=== PATIENT | male | born 1955 | race Caucasian/White ===

== ENCOUNTER 2017-04-14 17:59 | Emergency (ER) | payer OTHER ==
[~2017-04-14] VITALS: Ht 177.8 cm; Wt 74.8 kg
[~2017-04-14 17:59] MED LIST: ASPIR-LOW81 MG PO; DILANTIN100 MG PO; KEFLEX500 MG PO
== END 2017-04-14 19:28 | disposition home or self-care (01) ==
LOC: ED 17:59
DX: S61.207A Unspecified open wound of left little finger without damage to nail, initial encounter (principal); W25.XXXA Contact with sharp glass, initial encounter; Y93.89 Activity, other specified; Y92.69 Other specified industrial and construction area as the place of occurrence of the external cause; Y99.9 Unspecified external cause status

== ENCOUNTER 2017-05-14 10:57 | Emergency (ER) | payer BC ==
[~2017-05-14] VITALS: Ht 177.8 cm; Wt 74.8 kg
--- NOTE | ~2017-05-14 | EKG ---
[place], [place] ELECTROCARDIOGRAM REPORT NAME: FRANK DUNCAN UNIT #: [id number] ROOM: DOCTOR: IAN SHANKAR,AICHA BIRTHDATE: [birth year] DOS: 05/14/2017 TIME: 12:00, afternoon. IMPRESSION: 1. Sinus rhythm. 2. Right bundle-branch block. AICHA SOSA MD CM:EKGRPT:ELECTROCARDIOGRAM REPORT [id number] AICHA SOSA MD
[2017-05-14 12:08] LABS: BASO % 0.3 % (0.0-1.0); EOS # 0.1 10*3/uL (0.0-0.4); EOS % 1.7 % (1.0-4.0); HEMATOCRIT 41.1 % (42.0-52.0); HEMOGLOBIN 13.9 g/dl (14.0-18.0); LYMPH # 0.9 10*3/uL (1.3-4.4); LYMPH % 15.9 % (27.0-41.0); MEAN CELL VOLUME 88.8 fl (80.0-94.0); MEAN CORPUSCULAR HGB CONC 33.8 g/dl (33.0-37.0); MEAN PLATELET VOLUME 9.2 fl (9.6-12.3); MONO # 0.4 10*3/uL (0.1-1.0); MONO % 7.6 % (3.0-9.0); NEUT # 4.3 10*3/uL (2.3-7.9); NEUT % 74.3 % (47.0-73.0); PLATELET COUNT AUTOMATED 192 10*3/uL (130-400); RED BLOOD COUNT 4.63 10*6/uL (4.50-5.90); RED CELL DISTRI WIDTH 12.4 % (0-14.5); WHITE BLOOD COUNT 5.8 10*3/uL (4.8-10.8)
[2017-05-14 12:25] LABS: ALBUMIN 3.7 gm/dl (3.1-4.5); ALKALINE PHOSPHATASE 72 U/L (45-117); BUN 15 mg/dl (7-24); CHLORIDE 106 mmol/L (98-107); CREATININE 1.17 mg/dL (0.70-1.30); POTASSIUM 4.3 mmol/L (3.5-5.1); SGOT/AST 27 IU/L (3-35); SGPT/ALT 40 U/L (12-78); SODIUM 139 mmol/L (136-145); TOTAL PROTEIN 6.9 gm/dL (6.4-8.2)
[2017-05-14 12:30] LABS: TROPONIN I < 0.015 ng/ml (<0.045)
[2017-05-14 13:20] LABS: BILIRUBIN NEGATIVE (NEGATIVE); BLOOD NEGATIVE (NEGATIVE); CLARITY CLEAR (CLEAR); COLOR YELLOW (YELLOW); GLUCOSE NEGATIVE (NEGATIVE); KETONE NEGATIVE (NEGATIVE); LEUKO ESTERASE NEGATIVE (NEGATIVE); NITRITE NEGATIVE (NEGATIVE); PH 6.5 (5.0-9.0); SPECIFIC GRAVITY 1.015 (1.005-1.030); UROBILINOGEN 0.2 E.U./dl (0.2-1.0)
[2017-05-14 13:30] LABS: BACTERIA 3+; WBC 0-2 wbc/hpf (0-5)
== END 2017-05-14 13:38 | disposition home or self-care (01) ==
LOC: ED 10:57
PROVIDERS: Family Medicine Adult Medicine
DX: R51 Headache (principal); R42 Dizziness and giddiness; H53.8 Other visual disturbances; M79.601 Pain in right arm; I10 Essential (primary) hypertension

== ENCOUNTER 2017-05-26 13:43 | Inpatient (IN) | payer BC ==
[~2017-05-26] VITALS: Ht 177.8 cm; Wt 77.2 kg
[2017-05-26 13:55] VITALS: BP 141/95
[2017-05-26 14:08] LABS: BASO % 0.4 % (0.0-1.0); EOS # 0.2 10*3/uL (0.0-0.4); EOS % 3.8 % (1.0-4.0); HEMATOCRIT 38.4 % (42.0-52.0); HEMOGLOBIN 13.3 g/dl (14.0-18.0); LYMPH # 1.2 10*3/uL (1.3-4.4); LYMPH % 24.3 % (27.0-41.0); MEAN CELL VOLUME 87.5 fl (80.0-94.0); MEAN CORPUSCULAR HGB 30.3 pg (27.0-31.0); MEAN CORPUSCULAR HGB CONC 34.6 g/dl (33.0-37.0); MEAN PLATELET VOLUME 8.9 fl (9.6-12.3); MONO # 0.4 10*3/uL (0.1-1.0); MONO % 7.8 % (3.0-9.0); NEUT % 63.5 % (47.0-73.0); PLATELET COUNT AUTOMATED 167 10*3/uL (130-400); RED BLOOD COUNT 4.39 10*6/uL (4.50-5.90); RED CELL DISTRI WIDTH 12.3 % (0-14.5); WHITE BLOOD COUNT 4.7 10*3/uL (4.8-10.8)
[2017-05-26 14:17] LABS: ACT PARTIAL THROMBO TIME 26.7 SECONDS (20.8-31.5)
[2017-05-26 15:16] LABS: ALKALINE PHOSPHATASE 71 U/L (45-117); BUN 11 mg/dl (7-24); CHLORIDE 103 mmol/L (98-107); CPK 468 U/L (39-308); CREATININE 1.05 mg/dL (0.70-1.30); LIPASE 165 U/L (73-393); MAGNESIUM 1.9 mg/dL (1.5-2.1); POTASSIUM 3.9 mmol/L (3.5-5.1); SGOT/AST 35 IU/L (3-35); SGPT/ALT 46 U/L (12-78); SODIUM 138 mmol/L (136-145); TOTAL PROTEIN 6.8 gm/dL (6.4-8.2)
[2017-05-26 15:18] LABS: TROPONIN I < 0.015 ng/ml (<0.045)
[2017-05-26 15:24] LABS: CKMB 12.9 ng/ml (0.5-3.6)
[2017-05-26 18:52] VITALS: BP 163/70
[2017-05-26] MEDS ORDERED: KEPPRA500 MG PO (19:22)
[2017-05-26] MEDS ORDERED: COREG6.25 MG PO (19:23)
[2017-05-26 20:00] VITALS: BP 143/74
[2017-05-27] VITALS: BP 108/60
[2017-05-27 05:14] LABS: ACT PARTIAL THROMBO TIME 27.4 SECONDS (20.8-31.5)
[2017-05-27 05:37] LABS: ALBUMIN 3.6 gm/dl (3.1-4.5); ALKALINE PHOSPHATASE 67 U/L (45-117); BUN 12 mg/dl (7-24); CHLORIDE 104 mmol/L (98-107); CHOLESTEROL 196 mg/dL (<200); CREATININE 1.03 mg/dL (0.70-1.30); HDL CHOLESTEROL 44 mg/dl (40-60); LDL CHOLESTEROL 122 mg/dL (9-159); POTASSIUM 3.8 mmol/L (3.5-5.1); SGPT/ALT 38 U/L (12-78); SODIUM 141 mmol/L (136-145); TOTAL PROTEIN 6.3 gm/dL (6.4-8.2); TRIGLYCERIDES 149 mg/dl (<150); VLDL CHOLESTEROL 30 mg/dL (6-40)
[2017-05-27 05:43] LABS: FREE T4 0.96 ng/dl (0.76-1.46); SGOT/AST 29 IU/L (3-35)
[2017-05-27 05:48] LABS: BASO % 0.5 % (0.0-1.0); EOS # 0.2 10*3/uL (0.0-0.4); EOS % 5.6 % (1.0-4.0); HEMATOCRIT 39.4 % (42.0-52.0); HEMOGLOBIN 13.5 g/dl (14.0-18.0); LYMPH # 1.2 10*3/uL (1.3-4.4); LYMPH % 30.6 % (27.0-41.0); MEAN CELL VOLUME 89.3 fl (80.0-94.0); MEAN CORPUSCULAR HGB 30.6 pg (27.0-31.0); MEAN CORPUSCULAR HGB CONC 34.3 g/dl (33.0-37.0); MEAN PLATELET VOLUME 9.6 fl (9.6-12.3); MONO # 0.4 10*3/uL (0.1-1.0); MONO % 9.1 % (3.0-9.0); NEUT # 2.1 10*3/uL (2.3-7.9); NEUT % 53.9 % (47.0-73.0); PLATELET COUNT AUTOMATED 164 10*3/uL (130-400); RED BLOOD COUNT 4.41 10*6/uL (4.50-5.90); RED CELL DISTRI WIDTH 12.6 % (0-14.5)
[2017-05-27 07:05] LABS: VITAMIN D, 25-HYDROXY 43.8 ng/mL (30-100)
[2017-05-27 08:00] VITALS: BP 139/68
== END 2017-05-27 11:22 | disposition home or self-care (01) | DRG 282 ==
LOC: ED 13:43 → EDHOLD 15:56 → 4E 16:58
PROVIDERS: Emergency Medicine; Internal Medicine; ADMIT Internal Medicine
DX: I21.3 ST elevation (STEMI) myocardial infarction of unspecified site (principal); I10 Essential (primary) hypertension; D64.9 Anemia, unspecified; R74.8 Abnormal levels of other serum enzymes; R89.7 Abnormal histological findings in specimens from other organs, systems and tissues; G40.909 Epilepsy, unspecified, not intractable, without status epilepticus; J45.909 Unspecified asthma, uncomplicated; D72.829 Elevated white blood cell count, unspecified; Z81.8 Family history of other mental and behavioral disorders; Z82.5 Family history of asthma and other chronic lower respiratory diseases; Z79.82 Long term (current) use of aspirin; Z79.899 Other long term (current) drug therapy

== ENCOUNTER → 2017-06-14 | Day surgery (SDC) | payer BC ==
[~2017-06-14] VITALS: Ht 177.8 cm; Wt 76.7 kg
[~2017-06-14] MED LIST changes: +COREG6.25 MG PO; +KEPPRA500 MG PO
--- NOTE | ~2017-06-14 | O ---
[place], [place] OPERATIVE NOTE NAME: FRANK DUNCAN UNIT #: [id number] ROOM: DOCTOR: MATEO FELICIANO MD BIRTHDATE: [birth year] DOS: 06/14/2017 GASTROENDOSCOPIC REPORT. INDICATIONS: A 61-year-old patient who has presented for colonic screening. ALLERGIES: No known medication. FAMILY HISTORY: Father with colonic carcinoma. PAST SURGICAL HISTORY: Unremarkable. PAST MEDICAL HISTORY: Epilepsy, hypertension, last seizure 10 years ago. SOCIAL HISTORY: Nonsmoker, nonalcohol consumer, stopped 15 years ago. PROCEDURE: Today's procedure part of investigation is colonoscopy. PREMEDICATION: Versed and Diprivan. SCOPE: Olympus forward-viewing colonoscope 10L video. REPORT: After putting the patient in the left lateral position and after application of lubricant to the scope, the scope was introduced. Thereafter, under direct visualization, I advanced through the length of colon without difficulty. Base of the cecum explored, appendiceal orifice identified, ileocecal valve photographed. There is retention of some stool. Detailed mucosal evaluation impractical due to retention of pasty stool; however, anatomically, no gross pathology was identified to the cecum level. The intensity of retention of the pasty stool is less in transverse and as well in the descending colon. Air was suctioned out. The patient was extubated, tolerated the procedure well. IMPRESSION: Normal colonoscopic examination with fare colonic prep. PLAN AND DISCUSSION: I did not see any gross pathology throughout the colonoscopy. We are going to continue with high fiber diet. I recommend this gentleman to have another colonoscopy in 3-5 years. Thank you very much indeed for your kind referral. [place], [place] OPERATIVE NOTE NAME: FRANK DUNCAN UNIT #: [id number] ROOM: DOCTOR: MATEO FELICIANO MD BIRTHDATE: [birth year] AMTEO FELICIANO MD CM:OPRECORD:OPERATIVE NOTE [id number] MATEO FELICIANO MD 06/14/17 0922 interface
[2017-06-14 07:14] VITALS: BP 131/74
[2017-06-14 07:56] VITALS: BP 112/58
[2017-06-14 08:01] VITALS: BP 130/70
[2017-06-14 08:11] VITALS: BP 124/73
== END | disposition home or self-care (01) ==
LOC: SDC 06-08 08:00
DX: Z12.11 Encounter for screening for malignant neoplasm of colon (principal); I10 Essential (primary) hypertension; J45.909 Unspecified asthma, uncomplicated; Z80.0 Family history of malignant neoplasm of digestive organs

== ENCOUNTER → 2017-06-19 | Outpatient (CLI) | payer BC ==
[~2017-06-19] MED LIST changes: +B12,B-12,B 12500 MC1 PO; +B6 PO; +CALCIUM 600 +1 EAC2 PO; +MULTIVITAMINS1 EAC5 PO
--- NOTE | ~2017-06-19 | ST ---
[place], [place] EXERCISE STRESS TEST REPORT NAME: FRANK DUNCAN [facility] #: [id number] UNIT #: [id number] ROOM: DOCTOR: DUNIA PARSONS MD BIRTHDATE: [birth year] DOS: 06/19/2017 EXERCISE NUCLEAR STRESS TEST REASON FOR STRESS TEST: Precordial chest pain. PROCEDURE: The patient exercised on a full Fransisco protocol for 11 minutes 45 seconds and stopped for fatigue. He achieved a maximum heart rate of 136, which represented 86% of his maximum predicted heart rate at a workload of 12.5 mets. The resting blood pressure 146/62 hilda to 188/58. His EKG showed a right bundle branch block. He did not have any diagnostic ST changes with exercise. He had rare PACs and rare PVCs with exercise. One minute prior to completion of the exercise protocol, he was given radionuclide intravenously. IMPRESSION: 1. Excellent exercise capacity without chest pain or diagnostic electrocardiographic changes. 2. Radionuclide was administered. Please see the separate imaging report for further details of the patient's stress test results. DUNIA PARSONS MD CM:STRESS:EXERCISE STRESS TEST REPORT [id number] DUNIA PARSONS MD
--- NOTE | 2017-06-19 10:10 | NUR ---
INFORMED CONSENT SIGNED FOR CARIOLYTE STRESS TEST WITH DR. PARSONS. RESTING SINUS BRADYCARDIA/RBBB, HR 51, BP 146/62. COMPLETED 11:45 SECONDS OF A BRANT PROTOCOL COMPLETING 2:24 OF STAGE IV, 4.2 MPH/16% GRADE. TEST TERMINATED D/T FATIGUE. PEAK HEART RATE OF 136 ACHIEVED WHICH IS 86% PREDICTED MAXIMUM AND A PEAK BP OF 188/58. HAS A HIGH EXERCISE TOLERANCE. NO ST CHANGES NOTED. PVC'S AND PAC'S PRESENT. LAST RECOVERY HR 83, BP 158/74. WAITING NUCLEAR SCANNING IN STABLE CONDITON.
== END | disposition home or self-care (01) ==
LOC: CARD 01:23
DX: I10 Essential (primary) hypertension (principal)

== ENCOUNTER 2019-07-19 19:25 | Emergency (ER) | payer BC, OTHER ==
[~2019-07-19] VITALS: Ht 177.8 cm; Wt 70.8 kg
[2019-07-19 19:52] LABS: BASO % 0.4 % (0.0-1.0); EOS # 0.2 10*3/uL (0.0-0.4); EOS % 2.5 % (1.0-4.0); HEMATOCRIT 39.2 % (42.0-52.0); HEMOGLOBIN 13.3 g/dl (14.0-18.0); LYMPH # 0.9 10*3/uL (1.3-4.4); LYMPH % 12.7 % (27.0-41.0); MEAN CELL VOLUME 91.4 fl (80.0-94.0); MEAN CORPUSCULAR HGB CONC 33.9 g/dl (33.0-37.0); MONO # 0.4 10*3/uL (0.1-1.0); MONO % 5.3 % (3.0-9.0); NEUT # 5.7 10*3/uL (2.3-7.9); NEUT % 78.7 % (47.0-73.0); PLATELET COUNT AUTOMATED 168 10*3/uL (130-400); RED BLOOD COUNT 4.29 10*6/uL (4.50-5.90); RED CELL DISTRI WIDTH 12.4 % (0-14.5); WHITE BLOOD COUNT 7.2 10*3/uL (4.8-10.8)
[2019-07-19 20:08] LABS: ALBUMIN 3.7 gm/dl (3.1-4.5); ALKALINE PHOSPHATASE 63 U/L (45-117); BUN 11 mg/dl (7-24); CHLORIDE 106 mmol/L (98-107); CREATININE 1.06 mg/dL (0.70-1.30); POTASSIUM 3.6 mmol/L (3.5-5.1); SGOT/AST 31 IU/L (3-35); SGPT/ALT 50 U/L (12-78); SODIUM 140 mmol/L (136-145); TOTAL PROTEIN 6.6 gm/dL (6.4-8.2)
[2019-07-19 20:09] LABS: ETHYL ALCOHOL < 3.0 mg/dl (<3); TROPONIN I < 0.015 ng/ml (<0.045)
== END 2019-07-19 22:28 | disposition home or self-care (01) ==
LOC: ED 19:25
PROVIDERS: Nurse Practitioner Family
DX: R55 Syncope and collapse (principal); I10 Essential (primary) hypertension; J45.909 Unspecified asthma, uncomplicated; Z79.899 Other long term (current) drug therapy; Z86.2 Personal history of diseases of the blood and blood-forming organs and certain disorders involving the immune mechanism; V89.2XXA Person injured in unspecified motor-vehicle accident, traffic, initial encounter; Y93.89 Activity, other specified; Y92.89 Other specified places as the place of occurrence of the external cause; Y99.8 Other external cause status

== ENCOUNTER 2019-08-24 15:02 | Emergency (ER) | payer OTHER, BC ==
[~2019-08-24] VITALS: Ht 182.8 cm; Wt 74.8 kg
[2019-08-24] MEDS ORDERED: Motrin,Rufen800 MG PO (17:37)
== END 2019-08-24 17:50 | disposition home or self-care (01) ==
LOC: ED 15:02
DX: S30.0XXA Contusion of lower back and pelvis, initial encounter (principal); J45.909 Unspecified asthma, uncomplicated; Z79.899 Other long term (current) drug therapy; Z79.82 Long term (current) use of aspirin; W31.89XA Contact with other specified machinery, initial encounter; Y93.01 Activity, walking, marching and hiking; Y92.89 Other specified places as the place of occurrence of the external cause; Y99.8 Other external cause status

== ENCOUNTER → 2020-09-16 | Outpatient (CLI) | payer BC ==
[~2020-09-16] MED LIST changes: +Motrin,Rufen800 MG PO
== END | disposition home or self-care (01) ==
LOC: COVID19 12:53
PROVIDERS: ATTEND Student in an Organized Health Care Education/Training Program
DX: Z20.822 Contact with and (suspected) exposure to COVID-19 (principal)

== ENCOUNTER → 2020-09-24 | Outpatient (CLI) | payer BC | END | disposition home or self-care (01) | LOC: COVID19 12:42 | PROVIDERS: ATTEND Internal Medicine | DX: U07.1 COVID-19 (principal) ==

== ENCOUNTER → 2022-01-04 | Outpatient (CLI) | payer BC | END | disposition home or self-care (01) | LOC: RESCLI 01:55 | PROVIDERS: ATTEND Internal Medicine Nephrology | DX: J45.40 Moderate persistent asthma, uncomplicated (principal); G40.909 Epilepsy, unspecified, not intractable, without status epilepticus; J30.2 Other seasonal allergic rhinitis; E55.9 Vitamin D deficiency, unspecified; E78.2 Mixed hyperlipidemia; Z79.899 Other long term (current) drug therapy; Z79.82 Long term (current) use of aspirin ==

== ENCOUNTER 2022-05-18 17:59 | Observation (INO) | payer BC ==
[2022-05-18 18:07] VITALS: BP 127/66
[2022-05-18 18:49] LABS: BASO % 0.3 % (0.0-1.0); EOS # 0.2 10*3/uL (0.0-0.4); EOS % 3.2 % (1.0-4.0); HEMATOCRIT 38.2 % (42.0-52.0); LYMPH # 0.6 10*3/uL (1.3-4.4); LYMPH % 9.8 % (27.0-41.0); MEAN CELL VOLUME 91.2 fl (80.0-94.0); MEAN CORPUSCULAR HGB 30.5 pg (27.0-31.0); MEAN CORPUSCULAR HGB CONC 33.5 g/dl (33.0-37.0); MEAN PLATELET VOLUME 8.7 fl (9.6-12.3); MONO # 0.5 10*3/uL (0.1-1.0); MONO % 7.2 % (3.0-9.0); NEUT # 5.2 10*3/uL (2.3-7.9); NEUT % 79.3 % (47.0-73.0); PLATELET COUNT AUTOMATED 167 10*3/uL (130-400); RED BLOOD COUNT 4.19 10*6/uL (4.50-5.90); RED CELL DISTRI WIDTH 12.1 % (0-14.5); WHITE BLOOD COUNT 6.5 10*3/uL (4.8-10.8)
[2022-05-18 19:00] LABS: ACT PARTIAL THROMBO TIME 25.9 SECONDS (20.0-32.1); INTERNATIONAL NORM RATIO 1.1 (2.0-3.5)
[2022-05-18 19:06] LABS: ALKALINE PHOSPHATASE 75 U/L (45-117); BUN 14 mg/dl (7-24); CHLORIDE 111 mmol/L (98-107); CREATININE 1.34 mg/dL (0.70-1.30); LIPASE 148 U/L (73-393); POTASSIUM 4.1 mmol/L (3.5-5.1); SGOT/AST 33 IU/L (3-35); SGPT/ALT 48 U/L (12-78); SODIUM 140 mmol/L (136-145); TOTAL PROTEIN 6.1 gm/dL (6.4-8.2)
[2022-05-18 20:52] VITALS: BP 138/74
[2022-05-19 00:42] VITALS: BP 129/72
[2022-05-19 04:06] LABS: BILIRUBIN Negative (Negative); BLOOD Negative (Negative); CLARITY Clear (Clear); COLOR Yellow (Yellow); GLUCOSE Trace (Negative); KETONE Negative (Negative); LEUKO ESTERASE Negative (Negative); NITRITE Negative (Negative); PH 6.5 (4.5-8.0)
[2022-05-19 04:17] LABS: BASO % 0.5 % (0.0-1.0); EOS # 0.2 10*3/uL (0.0-0.4); EOS % 2.3 % (1.0-4.0); HEMATOCRIT 38.3 % (42.0-52.0); LYMPH # 0.9 10*3/uL (1.3-4.4); MEAN CELL VOLUME 92.3 fl (80.0-94.0); MEAN CORPUSCULAR HGB 30.8 pg (27.0-31.0); MEAN CORPUSCULAR HGB CONC 33.4 g/dl (33.0-37.0); MEAN PLATELET VOLUME 9.1 fl (9.6-12.3); MONO # 0.6 10*3/uL (0.1-1.0); MONO % 9.3 % (3.0-9.0); NEUT # 4.7 10*3/uL (2.3-7.9); NEUT % 73.6 % (47.0-73.0); PLATELET COUNT AUTOMATED 160 10*3/uL (130-400); RED BLOOD COUNT 4.15 10*6/uL (4.50-5.90); RED CELL DISTRI WIDTH 12.4 % (0-14.5); WHITE BLOOD COUNT 6.4 10*3/uL (4.8-10.8)
[2022-05-19 04:24] LABS: RBC 0-2 rbc/hpf (0-2)
[2022-05-19 04:32] LABS: BUN 10 mg/dl (7-24); CHLORIDE 113 mmol/L (98-107); CREATININE 1.08 mg/dL (0.70-1.30); SODIUM 144 mmol/L (136-145)
[2022-05-19 04:37] LABS: CHOLESTEROL 94 mg/dL (<200); FREE T4 0.93 ng/dl (0.76-1.46); LDL CHOLESTEROL 32 mg/dL (9-159); TRIGLYCERIDES 36 mg/dl (<150)
[2022-05-19 06:50] VITALS: BP 138/79
[2022-05-19 08:15] LABS: VITAMIN D, 25-HYDROXY 73.9 ng/mL (30-100)
[2022-05-19 11:58] VITALS: BP 136/75
[2022-05-19 14:41] VITALS: BP 123/57
[2022-05-19 15:25] VITALS: BP 148/65
== END 2022-05-19 15:17 | disposition home or self-care (01) ==
LOC: ED 17:59 → EDHOLD 05-19 00:50
PROVIDERS: Emergency Medicine; Student in an Organized Health Care Education/Training Program; ADMIT Internal Medicine; ATTEND Internal Medicine
DX: D64.9 Anemia, unspecified (principal); S30.0XXA Contusion of lower back and pelvis, initial encounter; R55 Syncope and collapse; I95.1 Orthostatic hypotension; E86.0 Dehydration; E87.2 Acidosis; E87.8 Other disorders of electrolyte and fluid balance, not elsewhere classified; N17.0 Acute kidney failure with tubular necrosis; G40.909 Epilepsy, unspecified, not intractable, without status epilepticus; J45.20 Mild intermittent asthma, uncomplicated; I10 Essential (primary) hypertension; E83.41 Hypermagnesemia; Z79.899 Other long term (current) drug therapy

== ENCOUNTER → 2022-05-26 | Outpatient (CLI) | payer BC | END | disposition home or self-care (01) | LOC: RESCLI 02:06 | PROVIDERS: ATTEND Internal Medicine | DX: R55 Syncope and collapse (principal); J45.40 Moderate persistent asthma, uncomplicated; E55.9 Vitamin D deficiency, unspecified; G40.909 Epilepsy, unspecified, not intractable, without status epilepticus; E78.5 Hyperlipidemia, unspecified; Z88.8 Allergy status to other drugs, medicaments and biological substances; Z79.899 Other long term (current) drug therapy ==

== ENCOUNTER 2023-02-05 15:39 | Emergency (ER) | payer OTHER, BC, MEDICARE ==
[~2023-02-05] VITALS: Ht 177.8 cm; Wt 77.1 kg
[2023-02-05] MEDS ORDERED: MONTELUKAST SOD10 MG PO (16:31)
[2023-02-05] MEDS ORDERED: TRELEGY ELLIPT1 EAC1 INH (16:32)
[2023-02-05] MEDS ORDERED: ATORVASTATIN CA40 M1 PO (16:32)
[2023-02-05] MEDS ORDERED: SEPTDS PO (17:55)
== END 2023-02-05 18:17 | disposition home or self-care (01) ==
LOC: ED 15:39
DX: S61.210A Laceration without foreign body of right index finger without damage to nail, initial encounter (principal); Z79.899 Other long term (current) drug therapy; W23.0XXA Caught, crushed, jammed, or pinched between moving objects, initial encounter; Y93.89 Activity, other specified; Y92.69 Other specified industrial and construction area as the place of occurrence of the external cause; Y99.9 Unspecified external cause status

== ENCOUNTER 2024-11-01 08:31 | Emergency (ER) | payer MEDICARE, OTHER ==
[~2024-11-01] VITALS: Ht 177.8 cm; Wt 88.5 kg
[~2024-11-01 08:31] MED LIST changes: +ATORVASTATIN CA40 M1 PO; +MONTELUKAST SOD10 MG PO; +SEPTDS PO; +TRELEGY ELLIPT1 EAC1 INH
[2024-11-01] MEDS ORDERED: MELOXICAM7.5 MG PO (08:49)
[2024-11-01] MEDS ORDERED: LEVOFLOXACIN750 M2 PO (09:17)
[2024-11-01] MEDS ORDERED: BROMFED DM COU118 M2 PO (09:17)
== END 2024-11-01 09:32 | disposition home or self-care (01) ==
LOC: ED 08:31
DX: J45.909 Unspecified asthma, uncomplicated (principal); Z20.822 Contact with and (suspected) exposure to COVID-19; I10 Essential (primary) hypertension; G40.909 Epilepsy, unspecified, not intractable, without status epilepticus; Z79.899 Other long term (current) drug therapy; Z79.82 Long term (current) use of aspirin

== ENCOUNTER 2024-11-10 04:13 | Inpatient (IN) | payer MEDICARE, OTHER ==
[~2024-11-10] VITALS: Ht 177.8 cm; Wt 83.9 kg
[~2024-11-10 04:13] MED LIST changes: +BROMFED DM COU118 M2 PO; +LEVOFLOXACIN750 M2 PO; +MELOXICAM7.5 MG PO
[2024-11-10 04:22] VITALS: BP 134/70
[2024-11-10 05:14] LABS: BUN 9 mg/dl (9-23); CHLORIDE 99 mmol/L (98-107); POTASSIUM 4.4 mmol/L (3.4-5.1)
[2024-11-10] MEDS ORDERED: Albuterol Sulf/Ipratropium 3 ML VIAL NEB ONE (05:50)
[2024-11-10 06:07] LABS: BASO % 0.3 % (0.0-1.0); EOS % 0.2 % (1.0-4.0); HEMATOCRIT 40.1 % (42.0-52.0); MEAN CELL VOLUME 90.5 fl (80.0-94.0); MEAN CORPUSCULAR HGB 30.7 pg (27.0-31.0); MEAN CORPUSCULAR HGB CONC 33.9 g/dl (33.0-37.0); MEAN PLATELET VOLUME 9.2 fl (9.6-12.3); NEUT # 8.5 10*3/uL (2.3-7.9); NEUT % 81.5 % (47.0-73.0); PLATELET COUNT AUTOMATED 237 10*3/uL (130-400); RED BLOOD COUNT 4.43 10*6/uL (4.50-5.90); RED CELL DISTRI WIDTH 12.6 % (0-14.5); WHITE BLOOD COUNT 10.4 10*3/uL (4.8-10.8)
[2024-11-10] MEDS ORDERED: AZITHROMYCIN 250 ML IV ONE (06:10)
[2024-11-10] MEDS ORDERED: cefTRIAXone Sodium 1 GM/10 ML SYR IV ONE (06:10)
[2024-11-10] MEDS ORDERED: Ondansetron Hydrochloride 4 MG/2 ML VIAL IV PRN (06:25)
[2024-11-10] MEDS ORDERED: TEMAZEPAM 15 MG CAP PO PRN (06:25)
[2024-11-10] MEDS ORDERED: Magnesium Hydroxide 30 ML UDC PO PRN (06:25)
[2024-11-10] MEDS ORDERED: Acetaminophen/Hydrocodone 5 MG/325 MG TABLET PO PRN (06:25)
[2024-11-10] MEDS ORDERED: ACETAMINOPHEN 650 MG SUPP R PRN (06:25)
[2024-11-10] MEDS ORDERED: ACETAMINOPHEN 325 MG TAB PO PRN (06:25)
[2024-11-10] MEDS ORDERED: BISACODYL 10 MG SUPP R PRN (06:25)
[2024-11-10] MEDS ORDERED: BISACODYL 5 MG TAB PO PRN (06:25)
[2024-11-10] MEDS ORDERED: ASPIRIN ADULT L81 M1 PO (06:31)
[2024-11-10] MEDS ORDERED: [UNRECOGNIZED DRUG - OTHER] PO (06:31)
[2024-11-10] MEDS ORDERED: BUSPIRONE10 MG PO (06:32)
[2024-11-10] MEDS ORDERED: BENICAR20 MG PO (06:34)
[2024-11-10 08:44] VITALS: BP 132/68
[2024-11-10] MEDS ORDERED: busPIRone Hydrochloride 10 MG TAB PO SCH (10:00)
[2024-11-10] MEDS ORDERED: LEVETIRACETAM 250 MG TAB PO SCH (10:00)
[2024-11-10] MEDS ORDERED: Enoxaparin Sodium 40 MG/0.4 ML SYR SC SCH (10:00)
[2024-11-10] MEDS ORDERED: ASPIRIN, CHEWABLE 81 MG TAB PO SCH (10:00)
[2024-11-10] MEDS ORDERED: Albuterol Sulf/Ipratropium 3 ML VIAL NEB SCH (10:50)
[2024-11-10 13:04] VITALS: BP 141/74
[2024-11-10 16:48] VITALS: BP 132/78
[2024-11-10 17:05] VITALS: BP 161/80
[2024-11-10] MEDS ORDERED: ATORVASTATIN CALCIUM 40 MG TABLET PO SCH (18:00)
[2024-11-10] MEDS ORDERED: VITAMIN D325 MCG PO (18:35)
[2024-11-10 20:00] VITALS: BP 155/74
[2024-11-10] MEDS ORDERED: Montelukast Sodium 10 MG TAB PO SCH (21:00)
[2024-11-11] VITALS: BP 160/70
[2024-11-11] MEDS ORDERED: AZITHROMYCIN 250 ML IV SCH (05:00)
[2024-11-11] MEDS ORDERED: cefTRIAXone Sodium 10 ML IV SCH (06:00)
[2024-11-11 07:01] LABS: BASO % 0.1 % (0.0-1.0); EOS % 0.2 % (1.0-4.0); HEMATOCRIT 38.6 % (42.0-52.0); MEAN CELL VOLUME 91.9 fl (80.0-94.0); MEAN CORPUSCULAR HGB 30.2 pg (27.0-31.0); MEAN CORPUSCULAR HGB CONC 32.9 g/dl (33.0-37.0); MEAN PLATELET VOLUME 8.9 fl (9.6-12.3); MONO # 0.7 10*3/uL (0.1-1.0); MONO % 8.6 % (3.0-9.0); NEUT # 7.3 10*3/uL (2.3-7.9); NEUT % 84.5 % (47.0-73.0); PLATELET COUNT AUTOMATED 226 10*3/uL (130-400); RED CELL DISTRI WIDTH 12.6 % (0-14.5); WHITE BLOOD COUNT 8.6 10*3/uL (4.8-10.8)
[2024-11-11 07:04] LABS: ALKALINE PHOSPHATASE 82 U/L (46-116); BUN 8 mg/dl (9-23); CHLORIDE 98 mmol/L (98-107); CHOLESTEROL 92 mg/dL (<200); FREE T4 1.16 ng/dl (0.89-1.76); LDL CHOLESTEROL 49 mg/dL (9-159); SGPT/ALT 38 U/L (5-49); TOTAL PROTEIN 6.3 gm/dL (6.0-8.0); TRIGLYCERIDES 64 mg/dl (<150)
[2024-11-11 08:00] VITALS: BP 118/60
[2024-11-11] MEDS ORDERED: ZITHROMAX250 MG PO (11:47)
[2024-11-11] MEDS ORDERED: PREDNISONE50 MG PO (11:47)
[2024-11-11] MEDS ORDERED: MUCINEX1200 M1 PO (11:47)
[2024-11-11 12:00] VITALS: BP 134/62
== END 2024-11-11 13:40 | disposition home or self-care (01) | DRG 178 ==
LOC: ED 04:13 → 5E 06:18 → EDHOLD 06:18 → 5E 06:27
PROVIDERS: Internal Medicine; Student in an Organized Health Care Education/Training Program; ADMIT Internal Medicine; ATTEND Internal Medicine
DX: J15.69 Pneumonia due to other Gram-negative bacteria (principal); E87.1 Hypo-osmolality and hyponatremia; G40.919 Epilepsy, unspecified, intractable, without status epilepticus; J44.0 Chronic obstructive pulmonary disease with (acute) lower respiratory infection; D64.9 Anemia, unspecified; R73.9 Hyperglycemia, unspecified; I10 Essential (primary) hypertension; J45.909 Unspecified asthma, uncomplicated; Z20.822 Contact with and (suspected) exposure to COVID-19; Z81.8 Family history of other mental and behavioral disorders; Z79.82 Long term (current) use of aspirin; Z79.899 Other long term (current) drug therapy

== ENCOUNTER 2024-11-24 11:13 | Inpatient (IN) | payer MEDICARE, OTHER ==
[~2024-11-24] VITALS: Ht 177.8 cm; Wt 82.6 kg
[~2024-11-24 11:13] MED LIST changes: +ASPIRIN ADULT L81 M1 PO; +BENICAR20 MG PO; +BUSPIRONE10 MG PO; +MUCINEX1200 M1 PO; +PREDNISONE50 MG PO; +VITAMIN D325 MCG PO; +ZITHROMAX250 MG PO; +[UNRECOGNIZED DRUG - OTHER] PO
[2024-11-24 11:25] VITALS: BP 132/66
[2024-11-24] MEDS ORDERED: ZESTRIL10 MG PO (11:34)
[2024-11-24] MEDS ORDERED: VENTOLIN 02.5 MG/3 M INH (11:34)
[2024-11-24 11:57] LABS: BASO % 0.2 % (0.0-1.0); EOS % 0.1 % (1.0-4.0); HEMATOCRIT 39.7 % (42.0-52.0); MEAN CELL VOLUME 92.1 fl (80.0-94.0); MEAN CORPUSCULAR HGB 30.2 pg (27.0-31.0); MEAN CORPUSCULAR HGB CONC 32.7 g/dl (33.0-37.0); MEAN PLATELET VOLUME 8.1 fl (9.6-12.3); MONO # 0.8 10*3/uL (0.1-1.0); MONO % 7.5 % (3.0-9.0); NEUT # 9.2 10*3/uL (2.3-7.9); NEUT % 83.3 % (47.0-73.0); PLATELET COUNT AUTOMATED 307 10*3/uL (130-400); RED BLOOD COUNT 4.31 10*6/uL (4.50-5.90); RED CELL DISTRI WIDTH 12.3 % (0-14.5)
[2024-11-24 12:19] LABS: ALKALINE PHOSPHATASE 90 U/L (46-116); BUN 8 mg/dl (9-23); CHLORIDE 101 mmol/L (98-107); POTASSIUM 4.1 mmol/L (3.4-5.1); SGPT/ALT 43 U/L (5-49); TOTAL PROTEIN 6.6 gm/dL (6.0-8.0)
[2024-11-24] MEDS ORDERED: LEVOFLOXACIN 100 ML IV ONE (12:55)
[2024-11-24] MEDS ORDERED: LEVOFLOXACIN 50 ML IV ONE (13:00)
[2024-11-24] MEDS ORDERED: Ondansetron Hydrochloride 4 MG/2 ML VIAL IV PRN (13:30)
[2024-11-24] MEDS ORDERED: BISACODYL 5 MG TAB PO PRN (13:30)
[2024-11-24] MEDS ORDERED: TEMAZEPAM 15 MG CAP PO PRN (13:30)
[2024-11-24] MEDS ORDERED: Acetaminophen/Hydrocodone 5 MG/325 MG TABLET PO PRN (13:30)
[2024-11-24] MEDS ORDERED: ACETAMINOPHEN 650 MG SUPP R PRN (13:30)
[2024-11-24] MEDS ORDERED: BISACODYL 10 MG SUPP R PRN (13:30)
[2024-11-24] MEDS ORDERED: Magnesium Hydroxide 30 ML UDC PO PRN (13:30)
[2024-11-24] MEDS ORDERED: ACETAMINOPHEN 325 MG TAB PO PRN (13:30)
[2024-11-24] MEDS ORDERED: Albuterol Sulf/Ipratropium 3 ML VIAL NEB SCH (15:00)
[2024-11-24 15:30] VITALS: BP 148/73
[2024-11-24] MEDS ORDERED: KEPPRA750 MG PO (15:43)
[2024-11-24] MEDS ORDERED: ATORVASTATIN CALCIUM 40 MG TABLET PO SCH (18:00)
[2024-11-24] MEDS ORDERED: methylPREDNISolone sod succ 40 MG VIAL IV SCH (18:00)
[2024-11-24 20:00] VITALS: BP 154/71
[2024-11-24] MEDS ORDERED: Losartan Potassium 100 MG TABLET PO SCH (22:00)
[2024-11-24] MEDS ORDERED: busPIRone Hydrochloride 10 MG TAB PO SCH (22:00)
[2024-11-24] MEDS ORDERED: cefTRIAXone Sodium 1 GM in SYRINGE INFUSION 10 ML IV SCH (22:00)
[2024-11-24] MEDS ORDERED: GUAIFENESIN 600 MG TAB ER PO SCH (22:00)
[2024-11-24] MEDS ORDERED: Montelukast Sodium 10 MG TAB PO SCH (22:00)
[2024-11-24] MEDS ORDERED: LEVETIRACETAM 250 MG TAB PO SCH (22:00)
[2024-11-25] VITALS: BP 133/61
[2024-11-25 06:34] LABS: HEMATOCRIT 39.6 % (42.0-52.0); MEAN CELL VOLUME 91.7 fl (80.0-94.0); MEAN CORPUSCULAR HGB 30.3 pg (27.0-31.0); MEAN CORPUSCULAR HGB CONC 33.1 g/dl (33.0-37.0); MEAN PLATELET VOLUME 8.5 fl (9.6-12.3); PLATELET COUNT AUTOMATED 324 10*3/uL (130-400); RED BLOOD COUNT 4.32 10*6/uL (4.50-5.90); RED CELL DISTRI WIDTH 12.3 % (0-14.5)
[2024-11-25 06:36] LABS: BUN 8 mg/dl (9-23); CHLORIDE 101 mmol/L (98-107); POTASSIUM 4.5 mmol/L (3.4-5.1)
[2024-11-25 06:57] LABS: MANUAL DIFF REFLEX YES
[2024-11-25 07:10] LABS: BASOPHILS 1 % (0-1); BURR CELLS FEW; PLATELET SUFFICIENCY NORMAL (NORMAL); TOTAL CELLS COUNTED 100 #CELLS
[2024-11-25 08:00] VITALS: BP 148/67
[2024-11-25] MEDS ORDERED: Enoxaparin Sodium 40 MG/0.4 ML SYR SC SCH (10:00)
[2024-11-25] MEDS ORDERED: AZITHROMYCIN 250 ML IV SCH (10:00)
[2024-11-25] MEDS ORDERED: ASPIRIN, CHEWABLE 81 MG TAB PO SCH (10:00)
[2024-11-25 12:00] VITALS: BP 125/69
[2024-11-25 16:00] VITALS: BP 146/72
[2024-11-25 20:00] VITALS: BP 154/67
[2024-11-26] VITALS: BP 131/63
[2024-11-26 04:18] LABS: HEMATOCRIT 35.8 % (42.0-52.0); MEAN CELL VOLUME 91.1 fl (80.0-94.0); MEAN CORPUSCULAR HGB CONC 34.1 g/dl (33.0-37.0); MEAN PLATELET VOLUME 8.5 fl (9.6-12.3); PLATELET COUNT AUTOMATED 313 10*3/uL (130-400); RED BLOOD COUNT 3.93 10*6/uL (4.50-5.90); RED CELL DISTRI WIDTH 12.3 % (0-14.5); WHITE BLOOD COUNT 10.8 10*3/uL (4.8-10.8)
[2024-11-26 04:20] LABS: MANUAL DIFF REFLEX YES
[2024-11-26 04:46] LABS: BUN 12 mg/dl (9-23); CHLORIDE 102 mmol/L (98-107); POTASSIUM 4.3 mmol/L (3.4-5.1)
[2024-11-26 04:48] LABS: PLATELET SUFFICIENCY NORMAL (NORMAL); TOTAL CELLS COUNTED 100 #CELLS
[2024-11-26 04:49] LABS: BURR CELLS FEW; OVALOCYTES FEW
[2024-11-26 07:05] LABS: IMMUNOGLOBULIN M, Qn 52 mg/dL (20-172)
[2024-11-26 08:00] VITALS: BP 139/60
[2024-11-26] MEDS ORDERED: BUDESONIDE 0.5 MG AMP NEB SCH (11:05)
[2024-11-26 12:00] VITALS: BP 125/61
[2024-11-26] MEDS ORDERED: SODIUM BICARBONATE 4.2% 5 ML VIAL ONE (12:32)
[2024-11-26 15:05] LABS: ALDOLASE 5.9 U/L (3.3-10.3); ANGIOTENSIN-CONVERTING ENZYME 30 U/L (14-82)
[2024-11-26 16:00] VITALS: BP 135/65
[2024-11-26 20:00] VITALS: BP 155/87
[2024-11-27] VITALS: BP 160/90
[2024-11-27 06:32] LABS: BASO % 0.1 % (0.0-1.0); EOS % 0.1 % (1.0-4.0); HEMATOCRIT 35.1 % (42.0-52.0); MEAN CELL VOLUME 90.7 fl (80.0-94.0); MEAN CORPUSCULAR HGB 30.7 pg (27.0-31.0); MEAN CORPUSCULAR HGB CONC 33.9 g/dl (33.0-37.0); MEAN PLATELET VOLUME 8.3 fl (9.6-12.3); MONO # 0.5 10*3/uL (0.1-1.0); MONO % 4.5 % (3.0-9.0); NEUT # 9.7 10*3/uL (2.3-7.9); NEUT % 87.3 % (47.0-73.0); PLATELET COUNT AUTOMATED 291 10*3/uL (130-400); RED BLOOD COUNT 3.87 10*6/uL (4.50-5.90); RED CELL DISTRI WIDTH 12.6 % (0-14.5); WHITE BLOOD COUNT 11.1 10*3/uL (4.8-10.8)
[2024-11-27 07:27] LABS: BUN 12 mg/dl (9-23); CHLORIDE 102 mmol/L (98-107); POTASSIUM 4.1 mmol/L (3.4-5.1)
[2024-11-27 08:00] VITALS: BP 126/57
[2024-11-27 12:00] VITALS: BP 138/69
[2024-11-27 14:05] LABS: ACID FAST SPEC PROCESSING Tissue Grinding (.)
[2024-11-27] MEDS ORDERED: AMOX-CLAV 875-1 EACH PO (14:08)
[2024-11-27] MEDS ORDERED: PREDNISONE10 MG PO (14:08)
== END 2024-11-27 15:00 | disposition home or self-care (01) | DRG 178 ==
LOC: ED 11:13 → EDHOLD 12:59 → 5E 12:59
PROVIDERS: Internal Medicine Critical Care Medicine; Nurse Practitioner Family; Student in an Organized Health Care Education/Training Program; ADMIT Internal Medicine; ATTEND Internal Medicine
PROC: 0BBJ3ZX Excision of Left Lower Lung Lobe, Percutaneous Approach, Diagnostic (ICD-10-PCS; principal; 2024-11-26)
DX: J15.69 Pneumonia due to other Gram-negative bacteria (principal); E44.0 Moderate protein-calorie malnutrition; I76 Septic arterial embolism; Z78.9 Other specified health status; D64.9 Anemia, unspecified; G40.909 Epilepsy, unspecified, not intractable, without status epilepticus; Z66 Do not resuscitate; R73.9 Hyperglycemia, unspecified; I10 Essential (primary) hypertension; J45.20 Mild intermittent asthma, uncomplicated; R91.8 Other nonspecific abnormal finding of lung field; E66.9 Obesity, unspecified; E78.00 Pure hypercholesterolemia, unspecified; Z82.5 Family history of asthma and other chronic lower respiratory diseases; Z81.8 Family history of other mental and behavioral disorders; Z79.82 Long term (current) use of aspirin; Z79.899 Other long term (current) drug therapy; Z68.26 Body mass index [BMI] 26.0-26.9, adult

== ENCOUNTER 2025-03-15 11:19 | Inpatient (IN) | payer MEDICARE, OTHER ==
[~2025-03-15] VITALS: Ht 180.3 cm; Wt 83.1 kg
[~2025-03-15 11:19] MED LIST changes: +AMOX-CLAV 875-1 EACH PO; +KEPPRA750 MG PO; +PREDNISONE10 MG PO; +VENTOLIN 02.5 MG/3 M INH; +ZESTRIL10 MG PO
[2025-03-15] MEDS ORDERED: SODIUM CHLORIDE 0.9% 1,000 ML IV ONE (11:30)
[2025-03-15 11:31] VITALS: BP 151/77
[2025-03-15] MEDS ORDERED: IOHEXOL 300 MG/ML 100 ML VIAL ONE (11:54)
[2025-03-15] MEDS ORDERED: SODIUM CHLORIDE 0.9% 100 ML IV ONE (11:54)
[2025-03-15] MEDS ORDERED: IOHEXOL 350 MG/ML 100 ML VIAL IV ONE (11:55)
[2025-03-15] MEDS ORDERED: SODIUM CHLORIDE 0.9% 100 ML BAG IV ONE (11:55)
[2025-03-15 11:58] LABS: MEAN CELL VOLUME 90.9 fl (80.0-94.0); MEAN CORPUSCULAR HGB 31.2 pg (27.0-31.0); MEAN PLATELET VOLUME 8.2 fl (9.6-12.3); NUCLEATED RED BLOOD CELL 0.0 % (0.0-0.0); NUCLEATED RED BLOOD CELL 0.0 10*3/uL (0.0-0.0); PLATELET COUNT AUTOMATED 181 10*3/uL (130-400); RED CELL DISTRI WIDTH 12.4 % (0-14.5)
[2025-03-15 12:01] LABS: MANUAL DIFF REFLEX YES
[2025-03-15 12:16] LABS: ACT PARTIAL THROMBO TIME 25.8 SECONDS (20.0-32.1)
[2025-03-15 12:18] LABS: BUN 7 mg/dl (9-23)
[2025-03-15 12:19] LABS: BILIRUBIN Negative (Negative); BLOOD Negative (Negative); CLARITY Clear (Clear); COLOR Yellow (Yellow); KETONE Negative (Negative); LEUKO ESTERASE Negative (Negative); NITRITE Negative (Negative); PH 8.0 (4.5-8.0); SPECIFIC GRAVITY 1.015 (1.001-1.030); UROBILINOGEN 0.2 E.U./dl (0.0-1.0)
[2025-03-15 12:23] LABS: PLATELET SUFFICIENCY NORMAL (NORMAL)
[2025-03-15 12:59] LABS: WBC 0-2 wbc/hpf (0-5)
[2025-03-15] MEDS ORDERED: ACETAMINOPHEN 325 MG TAB PO PRN (13:45)
[2025-03-15] MEDS ORDERED: Ondansetron Hydrochloride 4 MG/2 ML VIAL IV PRN (13:45)
[2025-03-15] MEDS ORDERED: BISACODYL 5 MG TAB PO PRN (13:45)
[2025-03-15] MEDS ORDERED: ACETAMINOPHEN 650 MG SUPP R PRN (13:45)
[2025-03-15] MEDS ORDERED: TEMAZEPAM 15 MG CAP PO PRN (13:45)
[2025-03-15] MEDS ORDERED: BISACODYL 10 MG SUPP R PRN (13:45)
[2025-03-15 14:00] VITALS: BP 145/82
[2025-03-15] MEDS ORDERED: LEVETIRACETAM 750 MG in SODIUM CHLORIDE 0.9% 100 ML IV SCH (16:00)
[2025-03-15 16:30] VITALS: BP 161/78
[2025-03-15] MEDS ORDERED: busPIRone Hydrochloride 10 MG TAB PO SCH (18:00)
[2025-03-15 20:00] VITALS: BP 157/77
[2025-03-15] MEDS ORDERED: LEVETIRACETAM 250 MG TAB PO SCH (22:00)
[2025-03-16] VITALS: BP 149/72
[2025-03-16 06:15] LABS: BASO # 0.0 10*3/uL (0.0-0.1); BASO % 0.3 % (0.0-1.0); EOS # 0.2 10*3/uL (0.0-0.4); EOS % 2.3 % (1.0-4.0); MEAN CELL VOLUME 92.9 fl (80.0-94.0); MEAN CORPUSCULAR HGB 31.0 pg (27.0-31.0); MEAN PLATELET VOLUME 8.7 fl (9.6-12.3); MONO # 0.8 10*3/uL (0.1-1.0); MONO % 10.8 % (3.0-9.0); NEUT # 5.2 10*3/uL (2.3-7.9); NEUT % 72.7 % (47.0-73.0); NUCLEATED RED BLOOD CELL 0.0 % (0.0-0.0); NUCLEATED RED BLOOD CELL 0.0 10*3/uL (0.0-0.0); PLATELET COUNT AUTOMATED 193 10*3/uL (130-400); RED CELL DISTRI WIDTH 12.4 % (0-14.5)
[2025-03-16 06:29] LABS: BUN 8 mg/dl (9-23); FREE T4 1.13 ng/dl (0.89-1.76); SGPT/ALT 30 U/L (5-49)
[2025-03-16 08:00] VITALS: BP 133/57
[2025-03-16] MEDS ORDERED: ATORVASTATIN CALCIUM 40 MG TABLET PO SCH (10:00)
[2025-03-16 11:14] LABS: URINE AMPHETAMINES Negative (1000ng/ml); URINE BARBITURATES Negative (200ng/ml); URINE BENZODIAZEPINES Negative (200ng/ml); URINE CANNABINOIDS (THC) Negative (50ng/ml); URINE COCAINE Negative (300ng/ml); URINE METHADONE Negative (300ng/ml); URINE OPIATES Negative (300ng/ml); URINE PHENCYCLIDINE Negative (25ng/ml)
[2025-03-16 12:00] VITALS: BP 122/61
[2025-03-16 16:00] VITALS: BP 129/71
[2025-03-16 20:00] VITALS: BP 145/73
[2025-03-17] VITALS: BP 133/71
[2025-03-17 05:23] LABS: BUN 9 mg/dl (9-23)
[2025-03-17 06:23] LABS: BASO # 0.0 10*3/uL (0.0-0.1); BASO % 0.5 % (0.0-1.0); EOS # 0.2 10*3/uL (0.0-0.4); EOS % 2.9 % (1.0-4.0); MEAN CELL VOLUME 92.7 fl (80.0-94.0); MEAN CORPUSCULAR HGB 30.9 pg (27.0-31.0); MEAN PLATELET VOLUME 9.1 fl (9.6-12.3); MONO # 0.7 10*3/uL (0.1-1.0); MONO % 11.3 % (3.0-9.0); NEUT # 4.1 10*3/uL (2.3-7.9); NEUT % 67.5 % (47.0-73.0); NUCLEATED RED BLOOD CELL 0.0 % (0.0-0.0); NUCLEATED RED BLOOD CELL 0.0 10*3/uL (0.0-0.0); PLATELET COUNT AUTOMATED 191 10*3/uL (130-400); RED CELL DISTRI WIDTH 12.4 % (0-14.5)
[2025-03-17 08:00] VITALS: BP 137/74
[2025-03-17 12:00] VITALS: BP 126/67
== END 2025-03-17 12:30 | disposition home or self-care (01) | DRG 640 ==
LOC: ED 11:19 → EDHOLD 12:46 → 4E 12:46 → EDHOLD 13:53 → 4E 14:52
PROVIDERS: Emergency Medicine; ADMIT Student in an Organized Health Care Education/Training Program; ATTEND Student in an Organized Health Care Education/Training Program
DX: E86.0 Dehydration (principal); G93.41 Metabolic encephalopathy; E87.1 Hypo-osmolality and hyponatremia; G40.909 Epilepsy, unspecified, not intractable, without status epilepticus; I10 Essential (primary) hypertension; J45.909 Unspecified asthma, uncomplicated; R91.8 Other nonspecific abnormal finding of lung field; D64.9 Anemia, unspecified; Z66 Do not resuscitate; R73.9 Hyperglycemia, unspecified; I65.23 Occlusion and stenosis of bilateral carotid arteries; M27.40 Unspecified cyst of jaw; Z82.5 Family history of asthma and other chronic lower respiratory diseases; Z79.82 Long term (current) use of aspirin; Z79.899 Other long term (current) drug therapy